=== PATIENT | female | born 2000 | race Caucasian/White ===

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

== ENCOUNTER 2025-02-23 23:24 | Inpatient (IN) ==
[2025-02-23 23:42] VITALS: BMI 27.6
[2025-02-24] MEDS ORDERED: ZOFRAN INJ 4 MG VIAL IVP ONE (00:05)
[2025-02-24] MEDS ORDERED: ZOFRAN INJ 4 MG VIAL ONE (00:07)
[2025-02-24] MEDS ORDERED: NUBAIN INJ 10 MG AMP ONE ×3 (00:07→04:56)
[2025-02-24] MEDS ORDERED: PITOCIN ONE (02:08)
[2025-02-24] MEDS ORDERED: BETADINE SOLN ONE (02:08)
[2025-02-24] MEDS ORDERED: D5 1/2 NS 1,000 ML 1,000 ML IV ONE (02:08)
[2025-02-24] MEDS: D5 1/2 NS 1,000 ML 1,000 ML IV SCH (02:20)
[2025-02-24] MEDS: OXYTOCIN 20 UNIT/1,000 ML-NS 20 UNIT/1,000 ML PLAST..BAG IV PRN (02:20)
[2025-02-24] MEDS ORDERED: ZOFRAN INJ 4 MG VIAL IVP PRN (02:24)
[2025-02-24] MEDS ORDERED: REGLAN INJ 10 MG VIAL IVP PRN (02:24)
[2025-02-24] MEDS: NUBAIN INJ 10 MG AMP IVP PRN (02:59)
[2025-02-24] MEDS: LR 1,000 ML IV 1,000 ML IV ONE (05:17)
[2025-02-24] MEDS ORDERED: NAROPIN EPIDURAL 0.2% 100 ML ONE (05:28)
[2025-02-24] MEDS ORDERED: FENTANYL VIAL INJ 100 mcg ONE (05:28)
[2025-02-24] MEDS ORDERED: XYLOCAINE 1 % (PLAIN) ONE (05:51)
--- NOTE | 2025-02-24 06:42 | DR.OB ---
OB QUICK NOTE Assessment/Plan (1) Active labor at term: Assessment/Plan: L&D 02/24/25 at 6:35am Pitocin=16mu/min. S-No complaint. s/p epidural. O-Afebrile,VSS WWD=179 with good LTV, +accel, no decel. CTX=q 1 1/2 to 3 min., moderate to strong by palpation CVX=6cm/80%/0/VTX AROM with clear fluid. IUPC and FSE placed. A-IUP at 39 3/7 weeks in active labor P-Continue pitocin induction Anticipate
[2025-02-24] MEDS: PITOCIN IVP ONE (09:50)
[2025-02-24] MEDS ORDERED: MOTRIN TAB 800 MG PO PRN ×2 (10:00→11:08)
[2025-02-24] MEDS: OXYTOCIN 20 UNIT/1,000 ML-NS 20 UNIT/1,000 ML PLAST..BAG IV SCH (10:50)
[2025-02-24] MEDS ORDERED: MILK OF MAGNESIA PO PRN (11:08)
[2025-02-24] MEDS ORDERED: AMBIEN PO PRN (11:08)
--- NOTE | 2025-02-24 11:10 | DR.OB ---
OB QUICK NOTE Assessment/Plan (1) Active labor at term: Assessment/Plan: Delivery Note MEDICAL RESEARCH SCIENTIST 02/24/25 at 9:46am Patient complete and pushing. Mother and were stable. Head delivered over intact perineum. Nose and mouth were bulb suction upon delivery of the head. No nuchal cord was noted. Body was delivered over intact perineum. Delayed cord clamping was done with the infant being laid on the mother's chest for skin to skin contact. When there was no pulsing of the cord the cord was clamped x 2 and cut with the being handed on off. Cord segment was sent for gases. The placenta was delivered spontaneously, intact, three-vessel cord. No cervical or vaginal tears were noted. A small periurethral tear was noted and did require a [id number] stitch of 0 Vicryl for hemostasis. Viable female weighing 7 pounds 6 ounces with Apgars of 9 at 1 minute and 10 at 5 minutes was stable and sent to the nursery. The infant was delivered from a vertex/OA position without any difficulty. Mother was stable and sent to the recovery room. Estimated blood loss 300 cc.
[2025-02-24] MEDS: ADACEL or BOOSTRIX TDaP VACCINE IM ONE (11:49)
[2025-02-24] MEDS: ADVIL TAB 200 MG PO PRN (12:58)
[2025-02-24] MEDS: PERCOCET TAB 5/325 MG PO PRN (14:02)
[2025-02-24] MEDS: DERMOPLAST PAIN RELIEF SPRAY TOP PRN (23:09)
[2025-02-25 04:09] VITALS: RESP 18
[2025-02-25 08:02] VITALS: BP 100/59; PULSE 69; TEMP 97.8; O2SAT 98
[2025-02-25] MEDS: PRENATAL PLUS PO SCH (08:26)
[2025-02-25] MEDS: ADACEL or BOOSTRIX TDaP VACCINE IM ONE (11:39)
== END 2025-02-25 12:10 | disposition home or self-care (01) | DRG 807 ==
LOC: ER 23:24 → LD 02-24 02:00 → MED/SURG 02-24 11:00
PROVIDERS: ADMIT Specialist; ATTEND Specialist
DX: Z37.0 Single live birth; O26.893 Other specified pregnancy related conditions, third trimester; O71.82 Other specified trauma to perineum and vulva; Z3A.39 39 weeks gestation of pregnancy